=== PATIENT | male | born 1955 | race Two or more races ===

== ENCOUNTER 2025-08-27 12:12 | Emergency (ER) | payer BC, OTHER ==
[~2025-08-27] VITALS: Ht 180.3 cm; Wt 104.3 kg
[2025-08-27] MEDS ORDERED: AZOR 5-20 MG T1 EACH (13:36)
[2025-08-27] MEDS ORDERED: GUAIFENESIN/DEXTROMETHORPHAN 100MG/10ML BLIST.PACK PO ONE (14:45)
[2025-08-27 18:18] LABS: BASO % 0.5 % (0.1-1.2); EOS # 0.25 (0.04-0.54); EOS % 5.7 % (0.7-7.0); LYMPH # 1.03 (1.18-3.74); LYMPH % 23.7 % (19.3-53.1); MEAN PLATELET VOLUME 8.80 fl (9.4-12.4); MONO # 0.47 (0.24-0.82); MONO % 10.8 % (4.7-12.5); NEUT # 2.57 (1.56-6.13); NEUT % 59.1 % (34.0-71.1); RED CELL DISTRIBUTION WIDTH 13.9 % (11.6-14.4)
[2025-08-27 19:10] LABS: ALT/SGPT 27.0 U/L (12-78); AST/SGOT 16.0 U/L (15-37); BILIRUBIN TOTAL 0.36 mg/dL (0.3-1.2); BUN CREA RATIO 15.0 (7.0-25.0); CREATININE SERUM 0.93 mg/dL (0.70-1.30); GFR 80.8; GLOBULINA 4.2 G/DL (2.4-3.5); GLUCOSE FASTING 119.0 mg/dL (65-100); OSMOLALITY SERUM 281.0 MOSM/KG (275-295)
[2025-08-27 19:53] LABS: COVID-19 AG NEGATIVE (NEGATIVE)
[2025-08-27] MEDS ORDERED: BENZONATATE200 M1 PO (20:00)
[2025-08-27] MEDS ORDERED: TYLENOL ARTHRI650 MG PO (20:00)
[2025-08-27] MEDS ORDERED: PEPCID AC20 MG PO (20:00)
[2025-08-27] MEDS ORDERED: OSEL75CA PO (20:00)
== END 2025-08-27 22:56 | disposition home or self-care (01) ==
LOC: ER 12:12
PROVIDERS: Preventive Medicine Public Health & General Preventive Medicine
DX: B34.9 Viral infection, unspecified (principal); Z85.72 Personal history of non-Hodgkin lymphomas; Z85.841 Personal history of malignant neoplasm of brain; I10 Essential (primary) hypertension; Z20.822 Contact with and (suspected) exposure to COVID-19